=== PATIENT | female | born 1960 | race Caucasian/White ===

== ENCOUNTER 2017-07-09 11:37 | Outpatient (CLI) | payer OTHER ==
--- NOTE | 2017-07-09 15:36 | Diagnostic Imaging Report ---
Indication: Abdominal pain Technique: Continuous helical transaxial imaging of the abdomen and pelvis was obtained from the lung bases to the pubic symphysis during intravenous contrast administration. Coronal 2-D reformats were also obtained. Study obtained in a Siemens sensation [address] Automatic Exposure Control was utilized. Total Dose length Product (DLP): 973.[address] Dose Index Volume (CTDIvol): 19.51 mGy Comparison: None Findings: The lung bases are clear. There is a small hiatal hernia. Some excreted contrast noted within the collecting systems of both kidneys. There is no hydronephrosis. The spleen and liver, pancreas, gallbladder appear unremarkable. Distal aorta show some mural calcification. Appendix is normal. Bladder is nondistended. Small left inguinal hernia containing fat demonstrated. There is no free fluid or free air. There is no evidence of bowel obstruction. Few discrete diverticula noted in the colon. Several of the intervertebral disks demonstrate vacuum phenomena. Mild endplate spur formation and facet hypertrophy noted. IMPRESSION: No acute findings appreciated in the abdomen or pelvis. Tiny left inguinal hernia containing fat. Mild diverticulosis of the colon Degenerative disc disease in the spine Atherosclerotic vascular disease. Small hiatal hernia The CT scanner at [facility] is accredited by the [employer] and the scans are performed using dose optimization techniques as appropriate to a performed exam including Automatic Exposure control.
== END 2017-07-09 13:37 | disposition home or self-care (01) ==
LOC: CAT 11:37
DX: R10.9 Unspecified abdominal pain (principal); K40.90 Unilateral inguinal hernia, without obstruction or gangrene, not specified as recurrent; K57.30 Diverticulosis of large intestine without perforation or abscess without bleeding; I70.90 Unspecified atherosclerosis; K44.9 Diaphragmatic hernia without obstruction or gangrene
CPT/HCPCS: 74177; Q9967